=== PATIENT | female | born 1970 | race Caucasian/White ===

== ENCOUNTER 2016-09-16 23:31 | Emergency (ER) | payer BC ==
[2016-09-16 23:45] VITALS: TEMP 98.6; BMI 24.0
--- NOTE | 2016-09-17 00:26 | EDPRACDOC ---
- General Information Chief Complaint: Generalized Weakness Stated Complaint: DIZZINESS Time Seen by Provider: 09/16/16 23:58 Information Source: Patient Mode of Arrival: Car Home Medications: Home Medications Alprazolam [Xanax] 0.5 mg PO Q8H 02/28/13 Methocarbamol [Robaxin] 500 mg PO Q6 PRN 02/28/13 Hydrochlorothiazide 12.5 mg PO DAILY 01/08/16 Lamotrigine [Lamictal] 200 mg PO DAILY 01/08/16 Norethindrone [Emerald] 0.35 mg PO DAILY 01/08/16 Omeprazole [Prilosec] 20 mg PO DAILY #30 cap 01/08/16 Zolpidem Tartrate [Ambien] 10 mg PO HS 01/08/16 Potassium Chloride [K-Dur] 10 meq PO DAILY #20 tab 09/17/16 Allergies/Adverse Reactions: Allergies Allergy/AdvReac Type Severity Reaction Status Date / Time quetiapine fumarate Allergy Severe See Verified 01/07/16 23:31 [From Seroquel] Comments bupropion HCl Allergy Mild RASH Verified 02/28/13 19:58 [From Wellbutrin] - History of Present Illness Onset: 18 MONTHS HPI: PATIENT PRESENTS EMERGED FROM WITH A MYRIAD OF COMPLAINTS. THE SYMPTOMS HAVE BEEN GOING ON FOR LAST 12-18 MONTHS AND HAVE PROGRESSIVELY GOTTEN WORSE ESPECIALLY FOR THE PAST 7-10 DAYS. THE SYMPTOMS INCLUDE FRONTAL HEADACHE SINUS PRESSURE POPPING SENSATION. SHE HAS ALSO BEEN DIZZY HEADED WITHOUT ATAXIA OR IMBALANCE. SHE HAS ALSO HAD DOES THE HEAD FEELING AND CLOUDING OF THOUGHTS DIFFICULTY CONCENTRATING. SHE HAS ALSO HAD A DRY MOUTH, AND TROUBLE SWALLOWING HER FOOD. THIS IS IN ASSOCIATION WITH ANOREXIA. SHE ALSO REPORTS SOME CHEST PRESSURE AND CHEST PAIN, NO ALLEVIATING OR AGGRAVATING FACTORS NO ASSOCIATED SHORTNESS OF BREATH. SHE HAS ALSO HAD MUSCLE DIFFUSE MUSCLE PAINS AND MUSCLE CRAMPS AND MID KNEE NO ALLEVIATING OR AGGRAVATING FACTORS ASSOCIATED WITH NUMBNESS OF HER RIGHT FOOT AND DESCRIBES A FOOT DROP. FOR THE SYMPTOMS SHE HAS HAD A QUITE EXTENSIVE WORKUP. SHE HAS BEEN FOLLOWED PREVIOUSLY BY NEUROLOGY DR. BOUDREAUX IN [place]: WORKUP HAS INCLUDED AN MRI OF THE BRAIN MRI THE NECK, MYASTHENIA GRAVIS BLOOD WORK. HOWEVER THERE HAS BEEN NO MUSCLE BIOPSIES OR NO LUMBAR PUNCTURE. SHE HAS ALSO SEEN DR. TEETEE MEDINA IN THE PAST, NEUROLOGY AT [place]: WORKUP HAS INCLUDED EEG MRI THE LUMBAR SPINE MRI THE RIGHT SHOULDER. SHE IS ALSO SEEN MULTIPLE RHEUMATOLOGISTS IN THE PAST WELL. SHE SAW HER PRIMARY CARE PHYSICIAN DR. SAMANO NOW FOR THE SYMPTOMS 2 DAYS AGO. IS BEING REFERRED TO [facility] CURRENTLY SHE PRESENTS TO THE EMERGENCY DEPT TONIGHT BECAUSE HER SYMPTOMS HAVE PROGRESSED. Pain Quality: Reports: Burning ED Past Medical History - History Reviewed Yes Nurses notes reviewed and agree except as marked - Patient Medical History Cardiac History: Reports: Hypertension GI/ History: Reports: Urinary Tract Infection Musculoskeletal History: Reports: Arthritis (FIBROMYALGIA) Psychological History: Reports: Depression, Anxiety. Denies: Substance Use Disorder Surgical History: Reports: Cholecystectomy (2009). Denies: Hysterectomy - Family Medical History Reports: Hypertension, Stroke (Mother), Cardiac Disorders (Brother: [place] at 38. Had "pearls in heart" MGM: [place] 76yo.). Denies: Diabetes, Cancer - Social Medical History Smoking Status: Former smoker Social History: Denies: Substance Use Disorder ETOH: None Substance Abuse: None Lives With: Family Lives In: Home EDM Review of Systems - Review of Systems Constitutional: Fatigue, Loss of Appetite, Weight loss Eyes: Blurred Vision, Pain. negative: Double Vision, Light Sensitive, Vision Loss Ears: No Symptoms Reported Throat: Other (THROAT PAIN AND TROUBLE SWALLOWING.) Nose: Other (SINUS PRESSURE AND POPPING.) Mouth: Other (DRY MOUTH) Respiratory: No Symptoms Reported Cardiovascular: Chest Pain. negative: Edema, Orthopnea, Palpitations, PND, Syncope, Skin Mottling Gastrointestinal: Nausea, Other (ANOREXIA). negative: Constipation, Diarrhea, Melena, Vomiting Genitourinary: No Symptoms Reported Neurological: Numbness, Seizure (BLACKING OUT WITHOUT LOSING CONSCIOUSNESS.), Weakness, Mood Changes, Memory Changes, Changes in Orientation. negative: Headache, Speech Difficulty Musculoskeletal: Other (GENERALIZED PAIN AND MUSCLE CRAMPS) Integumentary: Other (SKIN TINGLING AND BURNING.) Hematologic: No Symptoms Reported Endocrine: Weight Loss, Excessive Thirst Psychiatric: Depression. negative: Anxiety, Hallucinations, Insomnia, Suicidal - Physical Exam Constitutional: Alert (Awake), No apparent distress Oriented to: Time, Person, Place Last recorded Vital Signs: Last Vital Signs Temp 98.6 F 09/16/16 23:40 Pulse 85 09/16/16 23:40 Resp 20 09/16/16 23:40 BP 162/76 09/16/16 23:40 Pulse Ox 99 09/16/16 23:40 Oxygen Pulse Oxygen Saturation 99 O2 Device Room Air Oxygen Flow Rate Fraction of Inspired Oxygen ( FIO2) - HEENT Head: Normal ( normocephalic) Eye Exam: Normal (PERRL, EOMI, Sclera white) Oropharynx: Normal (Pharynx:Moist without exudate,Gums-no swelling) Tympanic Membrane: Normal ENT EAC: Normal TMJ: Normal Nose: No Symptoms Reported (septum midline) Neck: Normal (FROM, trachea at midline) - Respiratory/Cardiovascular Respiratory: Normal - CTA (BBS clear to auscultation without adventitious sounds ) Cardiovascular: Normal (RRR without murmur, gallop or rub) - GI Auscultation: Normal (NABS) Palpation: Normal (Soft,No rebound or guarding, non distended) Tenderness: Non tender Reynaga's Sign: Negative - Musculoskeletal Back: Normal (Non-Tender) Extremities: Normal (Normal tone, Pulses 2+ No cyanosis or edema, FROM) - Integumentary Skin: Normal, Warm, Dry Lymphatics: Normal (no adenopathy) - Neurologic Memory Impaired: Normal Motor Function: Normal (Normal tone, Pulses 2+ No cyanosis or edema, FROM) Cranial Nerve: Normal (CN II-X11 intact sensation, strength 5/5) Cerebellar: Normal Mood Description: Normal Perception: Normal - Results 09/17/16 00:50 09/17/16 00:50 - EKG EKG #1 EKG Time: 00:38 -: Yes EKG interpreted by me Rate: bpm: 71 [place]: Normal Rhythm: NSR Block: None Hypertrophy: None ST: Normal Comparison: 01/07/16 (IMPROVED) - Departure Disposition: Home Final Diagnosis: Myalgia, Weakness generalized, Hypokalemia Instructions: Weakness (General) Education/Counseling Given To: Patient, Family Member Education/Counseling Given Regarding: Diagnosis, Treatment, Prognosis Referrals: Letty Diana MD [Primary Care Provider] - One Week Prescriptions: Potassium Chloride [K-Dur] 10 meq PO DAILY #20 tab
[2016-09-17 00:59] LABS: AUTOMATED BASOPHIL 0.6 % (0-2); AUTOMATED EOSINOPHIL 0.6 % (0-5); AUTOMATED LYMPH 21.9 % (17-44); AUTOMATED NEUTROPHIL 70.9 % (45-76); MPV 7.2 fL (7.4-10.4)
[2016-09-17 01:03] LABS: LEUKOCYTES/URINE NEG (NEGATIVE); NITRITE/URINE NEG (NEGATIVE); RBC/URINE 0-2 (0-5); URINE OCCULT BLOOD 1+ (NEG/TRACE); WBC/URINE 0-2 (0-5)
[2016-09-17 01:10] LABS: BLOOD UREA NITROGEN 14 MG/DL (7-17); CALCIUM 9.7 MG/DL (8.4-10.2); CALCULATED OSMOLALITY 273 MOs/Kg (270-290); CHLORIDE 96 mEq/L (98-107); CPK TOTAL WITH POSSIBLE MB 95 IU/L (30-134); GLUCOSE 123 MG/DL (70-99); SODIUM LEVEL 141 mEq/L (137-146); TOTAL PROTEIN 8.2 G/DL (6.3-8.2)
--- NOTE | 2016-09-17 01:22 | DIRPT ---
CLINICAL DATA: Acute onset of shortness of breath. Right leg numbness and right upper arm numbness and pain. Intermittent generalized chest pain. Initial encounter. EXAM: CHEST 2 VIEW COMPARISON: Chest radiograph performed 01/19/2016 FINDINGS: The lungs are well-aerated and clear. There is no evidence of focal opacification, pleural effusion or pneumothorax. The heart is normal in size; the mediastinal contour is within normal limits. No acute osseous abnormalities are seen. IMPRESSION: No acute cardiopulmonary process seen. Electronically Signed By: Riaz Snyder M.D. On: 09/17/2016 01:19
[2016-09-17 01:40] LABS: hTSH 1.55 uIU/mL (0.5-4.67)
[2016-09-17] MEDS ORDERED: POTASSIUM CHLORIDE 20 MEQ TAB PO ONE (03:45)
[2016-09-17 04:44] VITALS: BP 134/60; PULSE 70
== END 2016-09-17 04:41 | disposition home or self-care (01) ==
LOC: ED 23:31
DX: M79.1 Myalgia (principal); R53.1 Weakness; E87.6 Hypokalemia
CPT/HCPCS: 36415; 71020; 80053; 81001; 82550; 83735; 84443; 84484; 85025; 93005; 99283; J3490

== ENCOUNTER 2016-09-17 19:05 | Emergency (ER) | payer BC ==
[2016-09-17 19:59] VITALS: TEMP 98.2; BMI 25.4
--- NOTE | 2016-09-17 21:37 | EDPRACDOC ---
<Mckenna Santos Mike - Last Filed: 09/17/16 22:51> - General Information Information Source: Patient Mode of Arrival: Car - History of Present Illness Onset: radiographer HPI: PT PRESENTS TO ED FOR DIZZINESS. SEEN LAST NIGHT FOR SAME. IN REVIEWING CHART FROM YESTERDAY PT HAVING SYMPTOMS FOR SOME TIME, WORSE OVER THE PAST WEEK. PT REPORTS SYMPOTMS OF DIZZINESS, SLURRING OF SPEECH WORSE TODAY. SUPPOSED TO HAVE OUTPATIENT CT HEAD SOON. NEGATIVE BLOODWORK YESTERDAY, NEG CXR. NO DEFINITIVE DIAGNOSIS OF MS, NO LP YET. WORKING ON SEEING NEURO AT [place]. PT HAD A NEUROLOGIST BEFORE BUT NO KNOWN DIAGNOSIS. NEGATIVE MRI IN PAST. DECREASED APPETITE THIS WEEK WITH 5 LB WEIGHT LOSS. NAUSEA. TROUBLE FOCUSING. <Efraín Michelle - Last Filed: 09/17/16 23:06> - General Information Chief Complaint: Generalized Weakness Stated Complaint: WEAKNESS Time Seen by Provider: 09/17/16 21:13 Home Medications: Home Medications Alprazolam [Xanax] 1 mg PO Q8H 02/28/13 Methocarbamol [Robaxin] 500 mg PO Q6 PRN 02/28/13 Hydrochlorothiazide 12.5 mg PO DAILY 01/08/16 Lamotrigine [Lamictal] 200 mg PO DAILY 01/08/16 Zolpidem Tartrate [Ambien] 10 mg PO HS 01/08/16 Atenolol 25 mg PO DAILY 09/17/16 Fluticasone Propionate [Flonase] 2 spray NIKI DAILY 09/17/16 Lubiprostone [Amitiza] 8 mcg PO BID 09/17/16 Norethindrone [Marcy] 0.35 mg PO DAILY 09/17/16 Nortriptyline HCl 50 mg PO DAILY 09/17/16 Pregabalin [Lyrica] 75 mg PO BID 09/17/16 Allergies/Adverse Reactions: Allergies Allergy/AdvReac Type Severity Reaction Status Date / Time quetiapine fumarate Allergy Severe See Verified 01/07/16 23:31 [From Seroquel] Comments bupropion HCl Allergy Mild RASH Verified 02/28/13 19:58 [From Wellbutrin] ED Past Medical History - Patient Medical History Cardiac History: Reports: Hypertension GI/ History: Reports: Urinary Tract Infection Musculoskeletal History: Reports: Arthritis (FIBROMYALGIA) Psychological History: Reports: Depression, Anxiety. Denies: Substance Use Disorder Surgical History: Reports: Cholecystectomy (2009). Denies: Hysterectomy - Family Medical History Reports: Hypertension, Stroke (Mother), Cardiac Disorders (Brother: [place] at 38. Had "pearls in heart" MGM: [place] 76yo.). Denies: Diabetes, Cancer - Social Medical History Smoking Status: Former smoker Social History: Denies: Substance Use Disorder <Efraín Michelle - Last Filed: 09/17/16 23:06> EDM Review of Systems - Review of Systems ROS Negative Except as Marked: Yes All systems reviewed and were negative except as marked Constitutional: Fatigue, Weakness <Efraín Michelle - Last Filed: 09/17/16 23:06> - Physical Exam Last recorded Vital Signs: Last Vital Signs Temp 98.2 F 09/17/16 19:56 Pulse 62 09/17/16 21:18 Resp 18 09/17/16 21:18 BP 152/74 09/17/16 21:18 Pulse Ox 100 09/17/16 21:18 Oxygen Pulse Oxygen Saturation 100 O2 Device Room Air Oxygen Flow Rate Fraction of Inspired Oxygen ( FIO2) <Mckenna Santos - Last Filed: 09/17/16 22:51> - Physical Exam Constitutional: Alert (Awake), No apparent distress Oriented to: Time, Person, Place Last recorded Vital Signs: Last Vital Signs Temp 98.2 F 09/17/16 19:56 Pulse 62 09/17/16 21:18 Resp 18 09/17/16 21:18 BP 152/74 09/17/16 21:18 Pulse Ox 100 09/17/16 21:18 Oxygen Pulse Oxygen Saturation 100 O2 Device Room Air Oxygen Flow Rate Fraction of Inspired Oxygen ( FIO2) - HEENT Head: Normal ( normocephalic) Eye Exam: Normal (PERRL, EOMI, Sclera white) Oropharynx: Normal (Pharynx:Moist without exudate,Gums-no swelling) Nose: No Symptoms Reported (septum midline) Neck: Normal (FROM, trachea at midline) - Respiratory/Cardiovascular Respiratory: Normal - CTA (BBS clear to auscultation without adventitious sounds ) Cardiovascular: Normal (RRR without murmur, gallop or rub) - GI Auscultation: Normal (NABS) Palpation: Normal (Soft,No rebound or guarding, non distended) Tenderness: Non tender Reynaga's Sign: Negative - Musculoskeletal Back: Normal (Non-Tender) Extremities: Normal (Normal tone, Pulses 2+ No cyanosis or edema, FROM) - Integumentary Skin: Normal, Warm, Dry Lymphatics: Normal (no adenopathy) - Neurologic Memory Impaired: Normal Motor Function: Normal (Normal tone, Pulses 2+ No cyanosis or edema, FROM) Cranial Nerve: Normal (CN II-X11 intact sensation, strength 5/5) Cerebellar: Normal Mood Description: Normal Perception: Normal <Efraín Michelle - Last Filed: 09/17/16 23:06> - Re-evaluation Re-evaluation 3 Re-evaluation Time: 22:34 Right Left Shoulder Abduction 5/5 5/5 Shoulder Adduction 5/5 5/5 Bicept Flexion 5/5 5/5 Tricept Extention 5/5 5/5 Wrist Dorsiflexion 5/5 5/5 Wrist Volarflexion 5/5 5/5 Hip Flexion 5/5 5/5 Hip Extension 5/5 5/5 Quad Extension 5/5 5/5 Hamstring Flexion 5/5 5/5 Foot Dorsiflexion 5/5 5/5 Foot Plantarflexion 5/5 5/5 SENSATION IS NORMAL OVER THE RADIAL ULNAR MEDIAN AXILLARY NERVE BILATERALLY UPPER EXTREMITIES. SENSATION NORMAL BILATERAL LOWER EXTREMITIES L1-S1 NERVE DISTRIBUTION. CEREBELLAR FUNCTIONS ARE NORMAL WITH GAIT SITTING STANDING, RAPID ALTERNATING MOVEMENTS OF THE BILATERAL HANDS, HEEL TO [place] AND [id number] ARE ALL WITHIN NORMAL LIMITS. VISUAL FIELD CONFRONTATION TEST DEMONSTRATING NO DEFICITS, NO NYSTAGMUS, SPEECH IS NORMAL. <Mckenna Santos N - Last Filed: 09/17/16 22:51> <Mckenna Santos N - Last Filed: 09/17/16 22:51> Decision Time to Discharge: 23:06 - Departure Yes I personally saw and evaluated the patient. Disposition: Home Education/Counseling Given To: Patient, Family Member Education/Counseling Given Regarding: Diagnosis <Efraín Michelle - Last Filed: 09/17/16 23:06> - Departure Condition: Stable Final Diagnosis: Attacks of weakness Instructions: Weakness (General) Referrals: Letty Diana MD [Primary Care Provider] - One Week Prescriptions: No Action Methocarbamol [Robaxin] 500 mg PO Q6 PRN PRN Reason: Pain Alprazolam [Xanax] 1 mg PO Q8H Hydrochlorothiazide 12.5 mg PO DAILY Lamotrigine [Lamictal] 200 mg PO DAILY Zolpidem Tartrate [Ambien] 10 mg PO HS Pregabalin [Lyrica] 75 mg PO BID Norethindrone [Marcy] 0.35 mg PO DAILY Lubiprostone [Amitiza] 8 mcg PO BID Atenolol 25 mg PO DAILY Fluticasone Propionate [Flonase] 2 spray NIKI DAILY Nortriptyline HCl 50 mg PO DAILY
[2016-09-17] MEDS ORDERED: PREDNISONE 20 MG TAB PO ONE (22:20)
--- NOTE | 2016-09-17 22:41 | DIRPT ---
CLINICAL DATA: Acute onset of dizziness and generalized weakness. Confusion and slurred speech. Initial encounter. EXAM: CT HEAD WITHOUT CONTRAST TECHNIQUE: Contiguous axial images were obtained from the base of the skull through the vertex without intravenous contrast. COMPARISON: CT of the head performed 01/19/2016, and MRI of the brain performed 01/27/2016 FINDINGS: There is no evidence of acute infarction, mass lesion, or intra- or extra-axial hemorrhage on CT. The posterior fossa, including the cerebellum, brainstem and fourth ventricle, is within normal limits. The third and lateral ventricles, and basal ganglia are unremarkable in appearance. The cerebral hemispheres are symmetric in appearance, with normal rosenthal-white differentiation. No mass effect or midline shift is seen. There is no evidence of fracture; visualized osseous structures are unremarkable in appearance. The orbits are within normal limits. The paranasal sinuses and mastoid air cells are well-aerated. No significant soft tissue abnormalities are seen. IMPRESSION: Unremarkable noncontrast CT of the head. Electronically Signed By: Riaz Snyder M.D. On: 09/17/2016 22:38
[2016-09-17 23:25] VITALS: BP 149/74; PULSE 60
== END 2016-09-17 23:24 | disposition home or self-care (01) ==
LOC: ED 19:05
DX: R53.1 Weakness (principal)
CPT/HCPCS: 70450; 99283; J3490